=== PATIENT | male | born 1970 | race African-American/Black ===

== ENCOUNTER 2017-06-19 13:12 | Emergency (ER) | payer OTHER ==
[~2017-06-19] VITALS: Ht 180.3 cm; Wt 73.6 kg
[~2017-06-19 13:12] MED LIST: FLEXERIL10 MG PO; MOBIC7.5 MG PO; MOTRIN800 MG PO; PERCOCET 5/31 TABLET PO; ULTRAM50 MG PO
[2017-06-19 14:07] LABS: HEMOGLOBIN 13.3 G/DL (12.5-16.6); MCH 32.6 PG (29.0-34.0); MCHC 34.1 G/DL (30.0-36.0); MCV 95.6 FL (86-99); PLATELET COUNT 195 K/uL (156-360); RBC DIS.WIDTH-CV 12.9 % (11.8-14.6); RBC DIS.WIDTH-SD 45.5 % (39-53); RED BLOOD COUNT 4.08 M/uL (4.00-5.50); WHITE BLOOD COUNT 10.2 K/uL (4.1-10.2)
[2017-06-19 14:17] LABS: CHLORIDE 108 mEq/L (99-109); POTASSIUM 4.5 mEq/L (3.7-5.4); SODIUM 139 mEq/L (136-147)
[2017-06-19 14:19] LABS: GLUCOSE 93 mg/dL (70-99)
[2017-06-19 14:23] LABS: CREATININE 1.3 mg/dL (0.6-1.3); GFR ESTIMATE (CALCULATED) > 59 mL/min/ (58.99-99999); UREA NITROGEN (BUN) 14 mg/dL (9-23)
[2017-06-19] MEDS ORDERED: PROAIR HFA8.5 GM IH (16:23)
[2017-06-19] MEDS ORDERED: MEDROL DOSEPAK4 MG PO (16:23)
[2017-06-19] MEDS ORDERED: ZITHROMAX Z-PA250 MG PO (16:23)
[2017-06-19 16:49] VITALS: BP 122/76
== END 2017-06-19 16:57 | disposition home or self-care (01) ==
LOC: EME 13:12
DX: J06.9 Acute upper respiratory infection, unspecified (principal); J45.909 Unspecified asthma, uncomplicated; Z88.0 Allergy status to penicillin
CPT/HCPCS: 71046; 80048; 85027; 99281; 99284